=== PATIENT | male | born 1995 | race Caucasian/White ===

== ENCOUNTER 2018-06-12 21:30 | Emergency (ER) | payer OTHER, MEDICAID ==
--- NOTE | 2018-06-12 22:44 | ED ---
Lower Extremity - HPI Summary HPI Summary: Pt. is a 23 y.o male who presents to the ER for a left ankle injury that occurred yesterday. Pt. states he was walking to class at [place] when he inverted left ankle. Associated sxs of swelling. Pain increases with walking. Sxs are mild in severity. - History of Current Complaint Chief Complaint: EDExtremityLower Stated Complaint: LT ANKLE INJURY Time Seen by Provider: 06/12/18 22:34 Hx Obtained From: Patient Pain Intensity: 3 - Allergies/Home Medications Allergies/Adverse Reactions: Allergies Allergy/AdvReac Type Severity Reaction Status Date / Time No Known Allergies Allergy Verified 06/12/18 21:35 PMH/Surg Hx/FS Hx/Imm Hx Previously Healthy: Yes Infectious Disease History: No Infectious Disease History: Denies: Traveled Outside the [place] in Last 30 Days - Social History Occupation: Student Lives: Dormitory/Roommates Alcohol Use: Occasionally Substance Use Type: Reports: None Smoking Status (MU): Never Smoked Tobacco Review of Systems Positive: Other - Left ankle pain Neurological: Negative Negative: Weakness, Paresthesia, Numbness All Other Systems Reviewed And Are Negative: Yes Physical Exam Triage Information Reviewed: Yes Vital Signs On Initial Exam: Initial Vitals Temp Pulse Resp BP Pulse Ox 99.9 F 80 15 126/78 96 06/12/18 21:32 06/12/18 21:32 06/12/18 21:32 06/12/18 21:32 06/12/18 21:32 Vital Signs Reviewed: Yes Appearance: Positive: Well-Appearing - Pt. sitting on bed in NAD. Skin: Positive: Warm, Dry Head/Face: Positive: Normal Head/Face Inspection Eyes: Positive: Normal, EOMI Neck: Positive: Supple Musculoskeletal: Positive: Other - Moderate edema and pain over lateral left ankle. Achilles tendon intact. No pain to base of 5th metatarsal. No proximal tib/fib or knee pain. Neurological: Positive: Normal, CN Intact II-III Psychiatric: Positive: Affect/Mood Appropriate Procedures - Splinting Left Lower Extremity Pre-Made Type: aircast Pre-Proc Neuro Vasc Exam: normal Post-Proc Neuro Vasc Exam: normal Diagnostics - Vital Signs Vital Signs Temp Pulse Resp BP Pulse Ox 06/12/18 21:32 99.9 F 80 15 126/78 96 - Laboratory Lab Statement: Any lab studies that have been ordered have been reviewed, and results considered in the medical decision making process. Lower Extremity Course/Dx - Course Course Of Treatment: Ankle xray reviewed by myself and Dr. Doshi, soft tissue edema noted without fx or dislocation. Air splint placed. Advised to ice and elevate. Tylenol or Motrin for pain as directed. To f.u with [facility] or ortho if sxs perist. Pt. understands and agrees with plan. - Diagnoses Differential Diagnosis/HQI/PQRI: Positive: Fracture (Closed), Sprain, Strain Provider Diagnoses: Ankle sprain Discharge - Sign-Out/Discharge Documenting (check all that apply): Patient Departure - Discharge Plan Condition: Good Disposition: HOME Patient Education Materials: Ankle Sprain (ED) Referrals: [facility] [Outside] Tomi Siegel MD [Medical Doctor] - No Primary Care Phys,NOPCP [Primary Care Provider] - Additional Instructions: Schedule a follow up appointment with [facility] or orthopedics if pain persist Wear splint for comfort Ice and elevate Tylenol or Motrin for pain as directed Return to ER if symptoms change or worsen - Billing Disposition and Condition Condition: GOOD Disposition: Home
[2018-06-12 22:56] VITALS: BP 121/74
--- NOTE | 2018-06-13 08:21 | RAD ---
INDICATION: Left lateral ankle pain after rolling injury the previous day COMPARISON: None. TECHNIQUE: 3 views of the left ankle were obtained. FINDINGS: There is a moderate degree of soft tissue swelling overlying the fibular malleolus. The well corticated bones exhibit normal alignment. Joint spaces appear maintained. No fracture is seen. IMPRESSION: SOFT TISSUE SWELLING OVERLYING THE FIBULAR MALLEOLUS WITHOUT RADIOGRAPHICALLY APPARENT UNDERLYING FRACTURE. If the patient's symptoms persist, follow-up imaging is recommended. R0
== END 2018-06-12 22:55 | disposition home or self-care (01) ==
LOC: ED 21:30
DX: S93.402A Sprain of unspecified ligament of left ankle, initial encounter (principal); X58.XXXA Exposure to other specified factors, initial encounter; Y92.9 Unspecified place or not applicable
CPT/HCPCS: 99282